=== PATIENT | male | born 1950 | race Caucasian/White ===

== ENCOUNTER → 2017-08-24 | Outpatient (CLI) | payer MEDICARE, OTHER ==
[~2017-08-24] MED LIST: ASPIRIN81 MG PO; CHANTIX0.5 MG PO; CRESTOR20 MG PO; METOPROLOL TART50 MG PO; PLAVIX75 MG PO; PRAVASTATIN SOD40 MG PO
--- NOTE | 2017-08-24 09:57 | Diagnostic Imaging Report ---
EXAMINATION: Head CT HISTORY: Status post fall, head trauma, headache for last 2 weeks. COMPARISON: None. TECHNIQUE: Multidetector axial images were obtained without contrast from the foramen magnum to the vertex . The images were reconstructed using brain and bone algorithms. Thin section brain images were reformatted into coronal and sagittal planes. Intravenous contrast: None. Motion/streaking artifact limits the evaluation of the skull base and posterior cranial fossa. FINDINGS: Parenchyma: 1. No abnormal densities. 2. No mass or hemorrhage. No CT evidence of acute territorial vascular insult. Extra-axial spaces:No abnormal density. No extra-axial fluid collections Brain volume: Normal for age. Ventricles: No hydrocephalus or displacement. Arteries: No density suggestive of thrombus. Dural sinuses: No abnormal density. Extra-axial spaces: No abnormal density. Foramen magnum: No mass, Chiari malformation, or basilar invagination. Sella: No obvious mass. Paranasal/mastoid sinuses: Partially visualized minimal mucosal fold thickening of the right maxillary and sphenoid sinuses. Skull/Scalp: No lytic or blastic lesions. No fractures. IMPRESSION: No intracranial abnormalities, particularly no hemorrhage. The findings were discussed with the nurse practitioner Araceli at the time of this dictation Signed by: Dr. Venus Domingo M.D. on 08/24/2017 9:53 AM
== END ==
LOC: CT 09:10
PROVIDERS: ATTEND Family Medicine
DX: S09.90XA Unspecified injury of head, initial encounter (principal); G44.319 Acute post-traumatic headache, not intractable; Z79.02 Long term (current) use of antithrombotics/antiplatelets
CPT/HCPCS: 70450